=== PATIENT | female | born 1935 | race Caucasian/White ===

== ENCOUNTER 2024-07-13 11:43 | Outpatient (AMB) | payer MEDICARE, SELFPAY ==
--- NOTE | 2024-07-13 11:25 | PD.ORTHTELE ---
Med/Allergies Allergies & Medications Allergies acetaminophen [From Tylenol] Allergy (Verified 07/13/24 11:26) Medication Reconciliation aspirin 81 mg tablet 81 mg PO QDAY 11/15/22 [History Confirmed 07/13/24] metoprolol succinate 25 mg tablet,extended release 24 hr 37.5 mg PO DAILY 11/15/22 [History Confirmed 07/13/24] pravastatin 20 mg tablet 20 mg PO DAILY 11/15/22 [History Confirmed 07/13/24] meloxicam 7.5 mg tablet 7.5 mg PO QDAY #45 tabs 07/13/24 [Rx] Subjective Visit Visit for: follow up visit Immunization / Flu Flu Vaccine in the Last 12 Months: Yes Flu Vaccine Exclusion Criteria: Already Received History of Present Illness Chief complaint: FOLLOW UP KNEE INJECTIONS Tasia is a pleasant 89-year-old female with right greater than left knee pain this. This has been ongoing for 3 years. She has tried cortisone injections as well as hyaluronic acid injections. She had creams. She reports last cortisone injection lasted for about 4 months. Personal History Red flag PMH: none Pain Pain level (0-10): 9 Pain duration: CONSTANT Pain location: inside (medial) Pain quality: aching Pain timing: night and increases with activity Associated signs & symptoms: none Ambulatory data Ambulatory device: none Treatments Improvement with previous injections: No Improvement with PT: No Improvement with NSAIDS: no Review of Systems Review of Systems: All systems negative unless otherwise noted in HPI. Assessment and Plan Problem List (1) Bilateral primary osteoarthritis of knee: Status: Acute Plan: Tasia is a pleasant 88-year-old female with bilateral knee osteoarthritis. We discussed nonoperative and operative options. She has significant right knee osteoarthritis. We discussed nonoperative and operative options. We went over her new x-rays given her recent fall. We discussed that there is no fracture. We discussed that we can try a brace. 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
== END 2024-07-13 11:45 | disposition home or self-care (01) ==
LOC: HODSRG 11:43
PROVIDERS: PCP Internal Medicine; Referring Provider Internal Medicine; Supervising Provider Orthopaedic Surgery Adult Reconstructive Orthopaedic Surgery; Visit Provider Orthopaedic Surgery Adult Reconstructive Orthopaedic Surgery
DX: M17.0 Bilateral primary osteoarthritis of knee (principal)
CPT/HCPCS: 99212; G0463

== ENCOUNTER 2024-07-31 14:13 | Outpatient (AMB) | payer MEDICARE, SELFPAY ==
--- NOTE | 2024-07-31 14:33 | PD.ORTHCLVIS ---
Vital signs 07/31/24 14:35 Height 1.55 m Height Method Stated Weight 41.787 kg Weight Measurement Method Standing Scale BMI 17.4 BP 172/85 H Blood Pressure Source Automatic Cuff Blood Pressure Location Right Upper Arm Position Sitting Respiration 18 Pulse 80 Pulse Source Monitor Temp 96.2 F L Temp Source Temporal Artery Scan Pulse Oximetry (%) 96 Oxygen Delivery Method Room Air Med/Allergies Allergies & Medications Allergies acetaminophen [From Tylenol] Allergy (Verified 07/31/24 14:35) Medication Reconciliation aspirin 81 mg tablet 81 mg PO QDAY 11/15/22 [History Confirmed 07/31/24] metoprolol succinate 25 mg tablet,extended release 24 hr 37.5 mg PO DAILY 11/15/22 [History Confirmed 07/31/24] pravastatin 20 mg tablet 20 mg PO DAILY 11/15/22 [History Confirmed 07/31/24] meloxicam 7.5 mg tablet 7.5 mg PO QDAY #45 tabs 07/13/24 [Rx Confirmed 07/31/24] Subjective Visit Visit for: follow up visit Immunization / Flu Flu Vaccine in the Last 12 Months: Yes Flu Vaccine Exclusion Criteria: Already Received History of Present Illness Chief complaint: FOLLOW UP KNEE INJECTIONS Tasia is a pleasant 89-year-old female with right greater than left knee pain this. This has been ongoing for 3 years. She has tried cortisone injections as well as hyaluronic acid injections. She had creams. She reports last cortisone injection lasted for about 3 months. she is due for an injection in approximately 6 weeks. Personal History Red flag PMH: none Pain Pain level (0-10): 9 Pain duration: CONSTANT Pain location: inside (medial) Pain quality: aching Pain timing: night and increases with activity Associated signs & symptoms: none Ambulatory data Ambulatory device: none Treatments Improvement with previous injections: No Improvement with PT: No Improvement with NSAIDS: no Review of Systems Review of Systems: All systems negative unless otherwise noted in HPI. Exam Exam Patient is in no acute distress and is cooperative with the examination today. Breathing is nonlabored. In no respiratory distress. Bilateral extremities were evaluated and demonstrates sensation intact to light touch. Palpable pedal pulses are present. No significant edema is present. Bilateral hips were examined. The patient has no pain with log roll of the hips. Internal rotation to 30 degrees and external rotation to 30 degrees is painless. Negative FADIR. The left knee was examined. The left knee is in [varus] alignment. Range of motion from [0-115] degrees. Knee is stable to varus and valgus as well as AP translation with <5mm. Patient has a [negative] McMurrays. There is [no] pain with patellofemoral compression and [no] crepitus noted. The knee is [tender] to palpation [medially]. The right knee was also examined. The right knee is in [varus] alignment. Range of motion from [0-120] degrees. Knee is stable to varus and valgus as well as AP translation with <5mm. Patient has a [negative] McMurrays. There is [no] pain with patellofemoral compression and [no] crepitus noted. The knee is [tender] to palpation [medially]. She has right greater than left knee Pain with significant osteoarthritis. There is complete obliteration of the lateral joint space on the right. Assessment and Plan Problem List (1) Bilateral primary osteoarthritis of knee: Status: Acute Plan: Tasia is a pleasant 89-year-old female with bilateral knee osteoarthritis. We discussed nonoperative and operative options. She has significant right knee osteoarthritis. We discussed nonoperative and operative options. We again discussed total knee replacement is a reasonable option. She wants to continue with conservative treatment which is reasonable given her age. He is due for another injection in approximately a month Advanced Care Planning Discussion Advance care planning discussed with:: patient Office Procedures GNS Level of Care Nursing/Assessment Patient Status: Established Patient Nursing Assessment/Reassesment: Medication Reconciliation, Update PMH in EMR and Vital Signs Coordination of Care: Complex Care and Chronic Disease 1-5, Education Complex Pt/Fam, Consent,records obtained, informed consent, 1 Ins Authorization, Results/Orders obtained and Staff clarify orders Established Patient Charge Established Patient Point Assignment: 110 Established Patient Point Charge: EP Level 3 (80-115) Past Medical History Past Medical History Have you ever been diagnosed with any of the following: Neurological Problems Seizures: No Cardiology Problems Coronary Artery Disease: Yes Hypercholesterolemia: Yes Congestive Heart Failure: No Hypertension: Yes Respiratory Problems Chronic Obstructive Pulmonary Disease (COPD): No Asthma: No Sleep Apnea: No Smoking: No Smoking Exposure: No Genital/Urinary Problems Renal Disease: No Musculoskeletal Problems Arthritis: Yes Endocrine Problems Diabetes Mellitus Type 1: No Diabetes Mellitus Type 2: No Other Problems Falls: Yes Blood Transfusions: Yes Blood Transfusion Reaction: No Anesthesia Reactions: Yes (DIFFICULTY WAKING UP) Cancer: No
[2024-07-31 14:35] VITALS: BP 172/85; PULSE 80; RESP 18; TEMP 35.7; O2SAT 96; BMI 17.4
== END 2024-07-31 15:08 | disposition home or self-care (01) ==
LOC: HODSRG 14:13
PROVIDERS: PCP Internal Medicine; Referring Provider Internal Medicine; Supervising Provider Orthopaedic Surgery Adult Reconstructive Orthopaedic Surgery; Visit Provider Orthopaedic Surgery Adult Reconstructive Orthopaedic Surgery
DX: M17.0 Bilateral primary osteoarthritis of knee (principal); I10 Essential (primary) hypertension; E78.00 Pure hypercholesterolemia, unspecified; I25.10 Atherosclerotic heart disease of native coronary artery without angina pectoris
CPT/HCPCS: 99213; G0463

== ENCOUNTER 2024-09-04 13:03 | Outpatient (AMB) | payer MEDICARE, SELFPAY ==
[2024-09-04 13:39] VITALS: BP 176/78; PULSE 74; RESP 18; TEMP 36.1; O2SAT 93; BMI 17.0
--- NOTE | 2024-09-04 13:39 | PD.ORTHCLVIS ---
Vital signs 09/04/24 13:39 Height 1.55 m Height Method Stated Weight 40.88 kg Weight Measurement Method Standing Scale BMI 17.0 BP 176/78 H Blood Pressure Source Automatic Cuff Blood Pressure Location Right Upper Arm Position Sitting Respiration 18 Pulse 74 Pulse Source Monitor Temp 96.9 F Temp Source Oral Pulse Oximetry (%) 93 L Oxygen Delivery Method Room Air Med/Allergies Allergies & Medications Allergies acetaminophen [From Tylenol] Allergy (Verified 09/04/24 13:43) Medication Reconciliation aspirin 81 mg tablet 81 mg PO QDAY 11/15/22 [History Confirmed 09/04/24] metoprolol succinate 25 mg tablet,extended release 24 hr 37.5 mg PO DAILY 11/15/22 [History Confirmed 09/04/24] pravastatin 20 mg tablet 20 mg PO DAILY 11/15/22 [History Confirmed 09/04/24] meloxicam 7.5 mg tablet 7.5 mg PO QDAY #45 tabs 07/13/24 [Rx Confirmed 09/04/24] Exam Exam Patient is in no acute distress and is cooperative with the examination today. Breathing is nonlabored. Patient has a normal mood and affect. Bilateral extremities were evaluated and demonstrates sensation intact to light touch. Palpable pedal pulses are present. No significant edema is present. Bilateral hips were examined. The patient has no pain with log roll of the hips. Internal rotation to 30 degrees and external rotation to 30 degrees is painless. Negative FADIR. Left knee was examined today. The left knee is in reasonable alignment. Range of motion from 0-120 degrees. Knee is stable to varus and valgus as well as AP translation with <5mm. Patient has a negative McMurrays. There is no pain with patellofemoral compression and no crepitus noted. The knee is nontender to palpation. The right knee was also examined. The right knee is in [varus] alignment. Range of motion from [0-115] degrees. Knee is stable to varus and valgus as well as AP translation with <5mm. Patient has a [negative] McMurrays. There is [no] pain with patellofemoral compression and [no] crepitus noted. The knee is [tender] to palpation [medially]. Assessment and Plan Problem List (1) Bilateral primary osteoarthritis of knee: Status: Acute Plan: Tasia is a pleasant 89-year-old female with bilateral knee osteoarthritis. We discussed nonoperative and operative options. She has significant right knee osteoarthritis. We discussed nonoperative and operative options. We again discussed total knee replacement is a reasonable option. Recommend knee cortisone injection as patient would like to proceed with conservative treatment at this time. The risks and benefits of the procedure were reviewed with the patient and patient gave verbal consent to continue with the procedure. Procedure: performed by Dr. Talavera Using sterile technique the Right knee was thoroughly prepped with alcohol, and approximately 1 cc of Kenalog 40 mg/mL and 4 cc of 1% lidocaine was injected without resistance into the medial tibial femoral joint space. The patient tolerated the procedure. Advanced Care Planning Discussion Advance care planning discussed with:: patient Office Procedures GNS Level of Care Nursing/Assessment Patient Status: Established Patient Nursing Assessment/Reassesment: Medication Reconciliation, Update PMH in EMR and Vital Signs Coordination of Care: Complex Care and Chronic Disease 1-5, Education Complex Pt/Fam, Consent,records obtained, informed consent, Results/Orders obtained and Staff clarify orders Established Patient Charge Established Patient Point Assignment: 95 Established Patient Point Charge: EP Level 3 (80-115) Surgical Proc/IM SQ injection Major Surgical Procedure: Yes (knee injection) Medication Given Medication Given Medication Given: Yes Documented Dose Given: 4 Route: Infiitration Medication Given Medication Given Medication Given: Yes Documented Dose Given: 1 Route: Infiitration Office Meds Xylocaine 10 mg/mL (1 %) injection solution Performing Provider: Gilberto Talavera MD Performing Location: [facility] Administered by: Gilberto Talavera MD on 09/04/24 14:09 Dose Route Admin Location Dispensed Lot Number Expiration Date [facility] Child Center Assistant 20 mL Infiltration 20 mL [id number] 05/18/27 98301-371-52 [employer] triamcinolone acetonide 40 mg/mL suspension for injection Performing Provider: Gilberto Talavera MD Performing Location: [facility] Administered by: Gilberto Talavera MD on 09/04/24 14:09 Dose Route Admin Location Dispensed Lot Number Expiration Date [facility] Child Center Assistant 40 mg intra-articular 1 mL [id number] 02/15/26 [id number] TEVA PARENTERAL MA Intake Visit Data Collection New Patient or Established: Established Patient (seen at [facility] within 3 years) 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 PCP or OBGYN visit in last 3 months: Yes Hx Now: No Do You Feel Safe at Home: Yes Authorities Contacted: N/A Questionairres Past Medical History Past Medical History Have you ever been diagnosed with any of the following: Neurological Problems Seizures: No Cardiology Problems Coronary Artery Disease: Yes Hypercholesterolemia: Yes Congestive Heart Failure: No Hypertension: Yes Respiratory Problems Chronic Obstructive Pulmonary Disease (COPD): No Asthma: No Sleep Apnea: No Smoking: No Smoking Exposure: No Genital/Urinary Problems Renal Disease: No Musculoskeletal Problems Arthritis: Yes Endocrine Problems Diabetes Mellitus Type 1: No Diabetes Mellitus Type 2: No Other Problems Falls: Yes Blood Transfusions: Yes Blood Transfusion Reaction: No Anesthesia Reactions: Yes (DIFFICULTY WAKING UP) Cancer: No Subjective Visit Visit for: follow up visit and knee Immunization / Flu Flu Vaccine in the Last 12 Months: Yes Flu Vaccine Exclusion Criteria: Already Received History of Present Illness Chief complaint: F/U knee pain Tasia is a pleasant 89-year-old female with bilateral knee pain and arthritis. We previously injected her right knee. Has been working for 3 months. The left knee actually feels very good. The knee pain is now starting to come back again and she would like the right knee injected Pain Pain level (0-10): 10 Pain duration: all day Pain location: inside (medial), outside (lateral), anterior and posterior Pain quality: sharp, dull and aching Pain timing: increases with activity Ambulatory data Ambulatory device: none Treatments Improvement with previous injections: No Improvement with PT: No Improvement with NSAIDS: n/a Review of Systems Review of Systems: All systems negative unless otherwise noted in HPI.
== END 2024-09-04 14:05 | disposition home or self-care (01) ==
LOC: HODSRG 13:03
PROVIDERS: PCP Internal Medicine; Referring Provider Internal Medicine; Supervising Provider Orthopaedic Surgery Adult Reconstructive Orthopaedic Surgery; Visit Provider Orthopaedic Surgery Adult Reconstructive Orthopaedic Surgery
DX: M17.0 Bilateral primary osteoarthritis of knee (principal); M25.562 Pain in left knee; M25.561 Pain in right knee; I10 Essential (primary) hypertension; E78.00 Pure hypercholesterolemia, unspecified; I25.10 Atherosclerotic heart disease of native coronary artery without angina pectoris
CPT/HCPCS: 20610; 99213; J3301; J3490; G0463

== ENCOUNTER → 2024-09-06 | Outpatient (CLI) | payer MEDICARE, SELFPAY ==
[2024-09-06 09:28] LABS: Collection Type, Urine Clean Catch
[2024-09-06 09:49] LABS: Bilirubin,Urine Negative (Negative); Blood,Urine Negative (Negative); Clarity,Urine Clear (Clear/Hazy); Color,Urine Lt-Yellow (Lt Yel-Yel); Glucose, Urine Negative (Negative); Ketones,Urine Negative (Negative); Leukocyte Esterase,Urine Positive (Negative); Nitrite,Urine Negative (Negative); PH,Urine 6.5 (5.0-7.0); Protein,Urine Negative (Neg - Trace); RBC,Urine 7 /hpf (0-3); Specific Gravity,Urine 1.015 (1.001-1.035); Squamous Epithelial Cell,Urine < 1 /hpf (0-5); Urobilinogen,Urine Negative mg/dL (0.0-1.0); WBC,Urine 19 /hpf (0-5)
[2024-09-06 09:53] LABS: Basophils # (Auto) 0.1 Thou/mm3 (0.0-0.2); Basophils % (Auto) 1 % (0-2.5); Eosinophils # (Auto) 0.1 Thou/mm3 (0.0-0.5); Eosinophils % (Auto) 1 % (0-10); Hematocrit 38.4 % (36.0-46.0); Hemoglobin 12.4 g/dL (12.0-16.0); Immature Granulocytes % (Auto) 0 % (0-0); Immature Granulocytes Auto 0.02 Thou/mm3 (0.00-0.00); Lymphocytes # (Auto) 3.7 Thou/mm3 (1.0-4.8); Lymphocytes % (Auto) 37 % (10-50); Mean Corpuscular HGB Conc 32.3 g/dl (31.0-37.0); Mean Corpuscular Hemoglobin 27.7 pg (25.0-35.0); Mean Corpuscular Volume 86 fL (80-100); Monocytes % (Auto) 10 % (0-12); Neutrophils # (Auto) 5.2 Thou/mm3 (1.8-7.7); Neutrophils % (Auto) 52 % (37-80); Nucleated Red Blood Cell % 0 /100 WBC (0); Platelet Count 404 Thou/mm3 (140-440); RDW Standard Deviation 48.1 fL (36.4-46.3); Red Blood Count 4.48 Miln/mm3 (4.00-5.20)
[2024-09-06 10:15] LABS: Alanine Aminotransferase 19 U/L (10-49); Albumin/Globulin Ratio 1.1 (1.2-2.2); Alkaline Phosphatase 115 U/L (46-116); Anion Gap 9 (7-16); Aspartate Amino Transferase 30 U/L (0-34); BUN/Creatinine Ratio 27 Ratio (12-20); Bilirubin,Total 0.6 mg/dL (0.3-1.2); Blood Urea Nitrogen 19 mg/dL (9-23); Calcium 10.1 mg/dL (8.3-10.6); Calcium (Corrected) 10.1 mg/dL (8.5-10.1); Carbon Dioxide 25.8 mMol/L (20.0-31.0); Chloride 106 mMol/L (98-107); Creatinine (Component) 0.7 mg/dL (0.6-1.3); Globulin 3.5 gm/dL (2.3-3.5); Glucose 85 mg/dL (74-106); Osmolality,Calculated 282 (275-295); Potassium 4.4 mMol/L (3.4-5.1); Sodium 141 mMol/L (136-145); Thyroid Stimulating Hormone 3.31 uIU/mL (0.55-4.78); Total Protein 7.5 gm/dL (5.7-8.2); eGFR > 60 See Note
[2024-09-06 15:19] LABS: Cardiac Risk Estimate 2.6 RATIO (3.7-5.6); Cholesterol 151 mg/dL (132-200); HDL Cholesterol 57 mg/dL (40-60); LDL Cholesterol,Calculated 76 mg/dL (0-130); Triglycerides 88 mg/dL (30-150)
== END | disposition home or self-care (01) ==
LOC: COPL 08:59
PROVIDERS: PCP Internal Medicine; Referring Provider Internal Medicine; Visit Provider Internal Medicine
DX: I10 Essential (primary) hypertension (principal); E78.5 Hyperlipidemia, unspecified
CPT/HCPCS: 36415; 80053; 80061; 81001; 84443; 85025

== ENCOUNTER 2024-11-27 13:52 | Outpatient (AMB) | payer MEDICARE, SELFPAY ==
[2024-11-27 14:22] VITALS: BP 154/81; PULSE 83; RESP 18; TEMP 36.4; O2SAT 94; BMI 17.4
--- NOTE | 2024-11-27 14:22 | ORTHONT_ITS ---
Vital signs 11/27/24 14:22 Height 1.55 m Height Method Stated Weight 41.957 kg Weight Measurement Method Standing Scale BMI 17.4 BP 154/81 H Blood Pressure Source Automatic Cuff Blood Pressure Location Right Upper Arm Position Sitting Respiration 18 Pulse 83 Pulse Source Monitor Temp 97.5 F Temp Source Temporal Artery Scan Pulse Oximetry (%) 94 L Oxygen Delivery Method Room Air Med/Allergies Allergies & Medications Allergies acetaminophen (From Tylenol) Allergy (Verified 11/27/24 14:23) Medication Reconciliation aspirin 81 mg tablet 81 mg PO QDAY 11/15/22 [History Confirmed 11/27/24] metoprolol succinate 25 mg tablet,extended release 24 hr 37.5 mg PO DAILY 11/15/22 [History Confirmed 11/27/24] pravastatin 20 mg tablet 20 mg PO DAILY 11/15/22 [History Confirmed 11/27/24] meloxicam 7.5 mg tablet 7.5 mg PO QDAY #45 tabs 07/13/24 [Rx Confirmed 11/27/24] Exam Exam Patient is in no acute distress and is cooperative with the examination today. Breathing is nonlabored. Patient has a normal mood and affect. Bilateral extremities were evaluated and demonstrates sensation intact to light touch. Palpable pedal pulses are present. No significant edema is present. Bilateral hips were examined. The patient has no pain with log roll of the hips. Internal rotation to 30 degrees and external rotation to 30 degrees is painless. Negative FADIR. Left knee was examined today. The left knee is in reasonable alignment. Range of motion from 0-120 degrees. Knee is stable to varus and valgus as well as AP translation with <5mm. Patient has a negative McMurrays. There is no pain with patellofemoral compression and no crepitus noted. The knee is nontender to palpation. The right knee was also examined. The right knee is in [varus] alignment. Range of motion from [0-115] degrees. Knee is stable to varus and valgus as well as AP translation with <5mm. Patient has a [negative] McMurrays. There is [no] pain with patellofemoral compression and [no] crepitus noted. The knee is [tender] to palpation [medially]. Assessment and Plan Problem List (1) Bilateral primary osteoarthritis of knee: Status: Acute Plan: Tasia is a pleasant 89-year-old female with bilateral knee osteoarthritis. We discussed nonoperative and operative options. She has significant right knee osteoarthritis. We discussed nonoperative and operative options. We again discussed total knee replacement is a reasonable option. Recommend knee cortisone injection as patient would like to proceed with conservative treatment at this time. The risks and benefits of the procedure were reviewed with the patient and patient gave verbal consent to continue with the procedure. Procedure: performed by Dr. Talavera Using sterile technique the Right knee was thoroughly prepped with alcohol, and approximately 1 cc of Kenalog 40 mg/mL and 4 cc of 1% lidocaine was injected without resistance into the medial tibial femoral joint space. The patient tolerated the procedure. Advanced Care Planning Discussion Advance care planning discussed with:: patient Office Procedures GNS Level of Care Nursing/Assessment Patient Status: Established Patient Nursing Assessment/Reassesment: Medication Reconciliation, Update PMH in EMR and Vital Signs Coordination of Care: Complex Care and Chronic Disease 1-5, Education Complex Pt/Fam, Consent,records obtained, informed consent, Results/Orders obtained and Staff clarify orders Established Patient Charge Established Patient Point Assignment: 95 Established Patient Point Charge: EP Level 3 (80-115) Surgical Proc/IM SQ injection Major Surgical Procedure: Yes (KNEE INJECTION ) Medication Given Medication Given Medication Given: Yes Documented Dose Given: 4 Route: Infiitration Medication Given Medication Given Medication Given: Yes Documented Dose Given: 1 Route: Infiitration Office Meds Xylocaine 10 mg/mL (1 %) injection solution Performing Provider: Gilberto Talavera MD Performing Location: [facility] Administered by: Gilberto Talavera MD on 11/27/24 15:37 Dose Route Admin Location Dispensed Lot Number Expiration Date [facility] Professor Sculpture 20 mL Infiltration 20 mL [id number] 01/17/28 14717-490-66 [facility] triamcinolone acetonide 40 mg/mL suspension for injection Performing Provider: Gilberto Talavera MD Performing Location: [facility] Administered by: Gilberto Talavera MD on 11/27/24 15:37 Dose Route Admin Location Dispensed Lot Number Expiration Date [facility] Professor Sculpture 40 mg intra-articular KNEE 1 mL [id number] 05/18/26 [id number] TE ME PARENTERAL MA Intake Visit Data Collection New Patient or Established: Established Patient (seen at [facility] within 3 years) Reason for Visit:: F/U KNEE INJECTION Seen by Clinical Staff ONLY (RN/MA): No Verbal consent obtained for Telemed visit?: No Emergency Worker Required: No PCP or OBGYN visit in last 3 months: Yes Hx Now: No Do You Feel Safe at Home: Yes Authorities Contacted: N/A Questionairres Past Medical History Past Medical History Have you ever been diagnosed with any of the following: Neurological Problems Seizures: No Cardiology Problems Coronary Artery Disease: Yes Hypercholesterolemia: Yes Congestive Heart Failure: No Hypertension: Yes Respiratory Problems Chronic Obstructive Pulmonary Disease (COPD): No Asthma: No Sleep Apnea: No Smoking: No Smoking Exposure: No Genital/Urinary Problems Renal Disease: No Musculoskeletal Problems Arthritis: Yes Endocrine Problems Diabetes Mellitus Type 1: No Diabetes Mellitus Type 2: No Other Problems Falls: Yes Blood Transfusions: Yes Blood Transfusion Reaction: No Anesthesia Reactions: Yes (DIFFICULTY WAKING UP) Cancer: No Subjective Visit Visit for: follow up visit, knee and injections Immunization / Flu Flu Vaccine in the Last 12 Months: Yes Flu Vaccine Exclusion Criteria: Already Received History of Present Illness Chief complaint: F/U 3 MONTH KNEE INJECTION Tasia is a pleasant 89-year-old female with bilateral knee pain and arthritis. We previously injected her right knee. Has been working for 3 months. The left knee actually feels very good. The knee pain is now starting to come back again and she would like the right knee injected Personal History Occupation: RETIRED Red flag PMH: none Pain Pain level (0-10): 4 Pain duration: ALL DAY Pain location: inside (medial), outside (lateral), anterior and posterior Pain quality: sharp, dull and aching Pain timing: increases with activity Ambulatory data Ambulatory device: none Treatments Improvement with previous injections: No Improvement with PT: No Improvement with NSAIDS: no Review of Systems Review of Systems: All systems negative unless otherwise noted in HPI.
== END 2024-11-27 14:54 | disposition home or self-care (01) ==
LOC: HODSRG 13:52
PROVIDERS: PCP Internal Medicine; Referring Provider Internal Medicine; Supervising Provider Orthopaedic Surgery Adult Reconstructive Orthopaedic Surgery; Visit Provider Orthopaedic Surgery Adult Reconstructive Orthopaedic Surgery
DX: M17.0 Bilateral primary osteoarthritis of knee (principal); I25.10 Atherosclerotic heart disease of native coronary artery without angina pectoris; E78.00 Pure hypercholesterolemia, unspecified; I10 Essential (primary) hypertension
CPT/HCPCS: 20610; 99213; J3301; J3490; G0463

== ENCOUNTER → 2024-12-31 | Outpatient (CLI) | payer MEDICARE, SELFPAY ==
--- NOTE | 2024-12-31 13:27 | XR_ITS ---
EXAMINATION: Cervical spine, 5 views Technique: Cervical spine AP, AP odontoid, lateral, bilateral obliques, 5 views Exam date and time: December 31, 2024 1411 hours INDICATIONS: Patient fell 3 days ago with injury to the neck, neck pain FINDINGS: Stable retrolisthesis C5 relative to C6 compared with October 11, 2016 On the lateral view there appears to be a fracture of the base of the odontoid with 4 mm posterior displacement of the odontoid No vertebral body compression fracture IMPRESSION: Recommend urgent CT scan cervical spine follow-up to confirm fracture base of the odontoid
--- NOTE | 2024-12-31 13:27 | XR_ITS ---
Examination: Lumbar spine, 5 views Technique: Lumbar spine AP, lateral, coned lateral lower lumbar spine, bilateral obliques 5 views Exam date and time: December 31, 2024 1411 hours INDICATIONS: Low back pain after falling 3 days ago. FINDINGS: Interval depression of the superior endplate L5 compared to the July 05, 2022 exam Prominent osteopenia No spondylolisthesis IMPRESSION: Recommend CT scan lumbar spine follow-up to confirm mild acute fracture L5 vertebral body
--- NOTE | 2024-12-31 13:27 | XR_ITS ---
Examination: Thoracic spine 3 views Technique one AP lateral coned lateral upper dorsal spine 3 views Exam date and time: December 31, 2024 1509 hours Comparison September 05, 2012 INDICATIONS: Patient fell 3 days ago with injury to the upper back, upper back pain. FINDINGS: Severe osteopenia. Moderate compression fracture T7 which may be old, although not seen on the September 05, 2012 exam No callie cortical bone destruction IMPRESSION: Recommend CT scan cervical spine follow-up to best assess acuity of the T7 vertebral body fracture
== END | disposition home or self-care (01) ==
LOC: CDIM 11:49
PROVIDERS: PCP Internal Medicine; Referring Provider Internal Medicine; Visit Provider Internal Medicine
DX: S19.9XXA Unspecified injury of neck, initial encounter (principal); S29.9XXA Unspecified injury of thorax, initial encounter; W19.XXXA Unspecified fall, initial encounter; M54.50 Low back pain, unspecified
CPT/HCPCS: 72050; 72072; 72110